=== PATIENT | female | born 1955 | race Caucasian/White ===

== ENCOUNTER 2016-08-11 08:59 | Day surgery (SDC) | payer OTHER ==
[~2016-08-11 08:59] MED LIST: Lactated Ringers 1,000 ML IV SCH; Sodium Chloride 0.9% 10 ML Syringe FLUSH PRN
[2016-08-11] MEDS ORDERED: Midazolam 1 MG/ML 2 ML SDV ONE ×2 (09:17→09:40)
[2016-08-11] MEDS ORDERED: fentaNYL 100 MCG/2 ML SDV ONE ×2 (09:17→09:40)
[2016-08-11] MEDS ORDERED: Propofol 200 MG/20 ML SDV ONE ×2 (09:18→09:40)
--- NOTE | 2016-08-11 09:37 | PCM.PN ---
- General Info Date of Service: 08/11/16 - Review of Systems Systems Review Comment:: 61-year-old female referred by Cielo Silva for colonoscopy. She had a recent episode of sigmoid diverticulitis which was successfully treated with antibiotics. The patient states that she has no pain at this time. The patient also states that she has a family history of colon cancer with her mother having from this. The patient is medically stable to proceed today there is been no significant change in her health status since her recent exam. I discussed the proposed colonoscopy with the patient. Risks discussed included but were not limited to bleeding as well as the risk of colon perforation which the patient understands me the fatal. She agrees to proceed. - Patient Data Vitals - most recent: Last Vital Signs Temp 98.7 F 08/11/16 09:24 Pulse 105 H 08/11/16 09:24 Resp 20 08/11/16 09:24 BP 160/101 H 08/11/16 09:24 Pulse Ox 98 08/11/16 09:24 Weight - most recent: 88.904 kg Med Orders - Current: Current Medications Lactated Ringer's (Ringers, Lactated) 1,000 mls @ 125 mls/hr IV ASDIRECTED SHO Last Admin: 08/11/16 09:26 Dose: 125 mls/hr Sodium Chloride (Saline Flush) 10 ml FLUSH ASDIRECTED PRN PRN Reason: Keep Vein Open Discontinued Medications Fentanyl (Sublimaze) Confirm Administered Dose 100 mcg .ROUTE .STK-MED ONE Stop: 08/11/16 09:18 Midazolam HCl (Versed 1 Mg/Ml) Confirm Administered Dose 2 mg .ROUTE .STK-MED ONE Stop: 08/11/16 09:18 Propofol (Diprivan 20 Ml) Confirm Administered Dose 200 mg .ROUTE .STK-MED ONE Stop: 08/11/16 09:19 - Problem List Review Problem List Initiated/Reviewed/Updated: Yes - Assessment Assessment:: Family history of colon cancer - Plan Plan:: Colonoscopy
--- NOTE | 2016-08-11 10:34 | PCM.OPNOTE ---
- General Post-Op/Procedure Note Date of Surgery/Procedure: 08/11/16 Operative Procedure(s): Colonoscopy Findings: Moderate Sigmoid Diverticulosis with mild residual inflammation Pre Op Diagnosis: History of Diverticulitis. Family History of Colon Cancer Post-Op Diagnosis: Same Anesthesia Technique: MAC Primary Surgeon: Georgi Richardson Pathology: none Output, Urine Amount: 0 EBL in mLs: 0 Complications: None Condition: Good Free Text/Narrative:: Intake & Output 08/10/16 08/11/16 08/11/16 22:59 06:59 14:59 Intake Total 500 Balance 500
[2016-08-11 11:19] VITALS: BP 132/89
--- NOTE | 2016-08-11 15:56 | OR ---
Date of Procedure: 08/11/2016 PREOPERATIVE DIAGNOSES: 1. Family history of colon carcinoma. 2. History of diverticulitis. POSTOPERATIVE DIAGNOSIS: Resolving diverticulitis. OPERATION PERFORMED: Colonoscopy. INDICATIONS FOR SURGERY: This 61-year-old female recently had an episode of diverticulitis. It has been five years since her last colon exam and she does have a family history of colon cancer in her mother. FINDINGS: No polyps were seen on today's exam. The patient does have a moderate degree of sigmoid diverticulosis. Few medium-sized pockets were noted and there was a mild degree of residual inflammation seen in the nearby mucosa. No other complications were identified. DESCRIPTION OF PROCEDURE: The patient was taken to the operating room. She was given intravenous sedation and with her in the left lateral decubitus position, digital rectal exam was performed showing no rectal masses. The Olympus colonoscope was inserted into the rectum, retroflexed, examination of the rectal canal was performed. The scope was then carefully advanced under direct visualization through the entire length of the colon until the cecum was reached. Cecal acquisition was confirmed by noting the normal internal cecal anatomy including the appendiceal orifice and ileocecal valve. The light was also noted to transilluminate the abdominal wall and the right lower quadrant. After examining the cecum, the scope was slowly withdrawn sequentially re- examining the colonic segments until the entire colon and rectum had been fully examined. The scope was then removed and the patient was taken from the operating room in satisfactory condition. ESTIMATED BLOOD LOSS: Zero. COMPLICATIONS: None. PROGNOSIS: Good. KELLE Richardson MD /[id number]
== END 2016-08-11 12:08 | disposition home or self-care (01) ==
LOC: LL.SDS 08:59
PROVIDERS: ATTEND Surgery
DX: Z12.11 Encounter for screening for malignant neoplasm of colon (principal); K57.30 Diverticulosis of large intestine without perforation or abscess without bleeding; F41.9 Anxiety disorder, unspecified; F32.9 Major depressive disorder, single episode, unspecified; Z91.040 Latex allergy status; Z79.899 Other long term (current) drug therapy; Z90.49 Acquired absence of other specified parts of digestive tract; Z88.8 Allergy status to other drugs, medicaments and biological substances; Z98.890 Other specified postprocedural states; Z98.51 Tubal ligation status
CPT/HCPCS: 45378; J7120; J2250; J2704; J3010

== ENCOUNTER 2021-10-07 08:36 | Day surgery (SDC) | payer MEDICARE, OTHER ==
[~2021-10-07 08:36] MED LIST changes: +Midazolam 1 MG/ML 2 ML SDV ONE; +Propofol 200 MG/20 ML SDV ONE
[2021-10-07 17:29] VITALS: BP 159/95; PULSE 82
== END 2021-10-07 11:25 | disposition home or self-care (01) ==
LOC: LL.SDS 08:36
PROVIDERS: ATTEND Surgery
DX: Z12.11 Encounter for screening for malignant neoplasm of colon (principal); K57.30 Diverticulosis of large intestine without perforation or abscess without bleeding; I10 Essential (primary) hypertension; E87.2 Acidosis; E11.9 Type 2 diabetes mellitus without complications; R56.9 Unspecified convulsions; E78.00 Pure hypercholesterolemia, unspecified; F41.9 Anxiety disorder, unspecified; F32.A Depression, unspecified; Z80.0 Family history of malignant neoplasm of digestive organs; Z79.899 Other long term (current) drug therapy; Z79.82 Long term (current) use of aspirin; Z90.49 Acquired absence of other specified parts of digestive tract; Z91.012 Allergy to eggs; Z91.011 Allergy to milk products; Z88.8 Allergy status to other drugs, medicaments and biological substances; Z91.040 Latex allergy status
CPT/HCPCS: 00812; J2250; J2704; J7120

== ENCOUNTER 2023-02-12 13:26 | Emergency (ER) | payer MEDICARE, OTHER ==
[2023-02-12 13:54] LABS: BASOPHILS ABSOLUTE AUTO 0.04 K/uL (0.00-0.20); BASOPHILS PERCENT AUTO 0.5 % (0.0-2.0); EOSINOPHILS ABSOLUTE AUTO 0.23 K/uL (0.00-0.50); EOSINOPHILS PERCENT AUTO 2.6 % (0.0-5.0); HEMATOCRIT 39.6 % (34.0-46.0); HEMOGLOBIN 13.2 g/dL (11.7-15.5); LYMPHOCYTES ABSOLUTE AUTO 1.62 K/uL (0.50-3.50); LYMPHOCYTES PERCENT AUTO 18.6 % (10.0-50.0); MEAN CORPUSCULAR HEMOGLOBIN 29.7 pg (28.2-33.3); MEAN CORPUSCULAR HGB CONC 33.3 g/dL (31.7-36.0); MONOCYTES ABSOLUTE AUTO 0.81 K/uL (0.00-1.00); MONOCYTES PERCENT AUTO 9.3 % (2.0-14.0); NEUTROPHILS ABSOLUTE AUTO 5.99 K/uL (1.40-7.00); PLATELET COUNT,PLT 286 K/uL (150-350); RED BLOOD CELL COUNT 4.45 M/uL (3.77-5.09); RED CELL DISTRIBUTION WIDTH 13.6 % (11.2-14.1); WHITE BLOOD CELL COUNT,WBC 8.7 K/uL (4.0-10.2)
[2023-02-12 14:02] LABS: APPEARANCE,URINE SLIGHTLY CLOUDY; BILIRUBIN,URINE NEGATIVE (NEGATIVE); COLOR,URINE YELLOW; GLUCOSE,URINE NEGATIVE (NEGATIVE); KETONES,URINE NEGATIVE (NEGATIVE); LEUKOCYTE ESTERASE,URINE MODERATE (NEGATIVE); NITRITE,URINE NEGATIVE (NEGATIVE); OCCULT BLOOD,URINE MODERATE (NEGATIVE); PROTEIN,URINE NEGATIVE (NEGATIVE); UROBILINOGEN,URINE 0.2 E.U./dL (0.2-1.0)
[2023-02-12 14:07] LABS: ANION GAP 9.4 meq/L (7-15); BLOOD UREA NITROGEN,BUN 9 mg/dL (7-18); CALCIUM 9.3 mg/dL (8.5-10.1); CARBON DIOXIDE,CO2 27.6 mmol/L (21.0-32.0); CHLORIDE,CL 103 mmol/L (98-107); CREATININE 0.84 mg/dL (0.51-1.17); GLUCOSE RANDOM 113 mg/dL (70-99); SODIUM,NA 140 mmol/L (136-145)
[2023-02-12 14:11] LABS: WBC,URINE 40-50 /HPF
[2023-02-12 14:12] LABS: BACTERIA,URINE MODERATE /HPF (NONE TO FEW); EPITHELIAL CELLS,URINE OCCASIONAL /LPF; ESTIMATED GFR 75 mL/min (>=60); MUCUS,URINE RARE /LPF (NEGATIVE)
[2023-02-12] MEDS ORDERED: cefTRIAXone 1 GM, Lidocaine 1% 2.1 ML IM ONE ×2 (14:21)
[2023-02-12] MEDS ORDERED: Take Home: Nitrofurantoin Monohydrate/Macrocrystalline 100 MG, 6 Cap Pack PO ONE (14:32)
[2023-02-12] MEDS ORDERED: Phenazopyridine 95 MG Tab PO ONE (14:35)
[2023-02-12] MEDS ORDERED: Take Home: Phenazopyridine 95 MG Tab, 4 Tab Pack PO ONE (14:38)
[2023-02-12 14:56] VITALS: BP 168/89; PULSE 96
[2023-02-12] MEDS ORDERED: Phenazopyridine 95 MG Tab PO SCH (18:30)
== END 2023-02-12 14:47 | disposition home or self-care (01) ==
LOC: LL.ED 13:26
DX: N39.0 Urinary tract infection, site not specified (principal); I10 Essential (primary) hypertension; E78.00 Pure hypercholesterolemia, unspecified; Z88.5 Allergy status to narcotic agent; Z91.011 Allergy to milk products; Z91.012 Allergy to eggs; Z91.040 Latex allergy status; Z91.048 Other nonmedicinal substance allergy status; Z79.899 Other long term (current) drug therapy
CPT/HCPCS: 36415; 80048; 81001; 85025; 87086; 87088; 87186; 96372; 99283; 99284; A9270-GY; J0696; J3490

== ENCOUNTER 2024-11-03 15:58 | Emergency (ER) | payer MEDICARE, OTHER ==
[2024-11-03 16:29] LABS: APPEARANCE,URINE CLOUDY; GLUCOSE,URINE NEGATIVE (NEGATIVE); OCCULT BLOOD,URINE MODERATE (NEGATIVE)
[2024-11-03 16:35] LABS: EPITHELIAL CELLS,URINE MODERATE /LPF; SQUAMOUS EPITHELIAL CELLS,UR FEW /HPF (NOT SEEN)
[2024-11-03] MEDS: Take Home: Nitrofurantoin Monohydrate/Macrocrystalline 100 MG, 6 Cap Pack PO ONE (17:08)
[2024-11-03 17:17] VITALS: BP 144/92; PULSE 82
== END 2024-11-03 17:15 | disposition home or self-care (01) ==
LOC: LL.ED 15:58
DX: N30.90 Cystitis, unspecified without hematuria (principal); E78.00 Pure hypercholesterolemia, unspecified; I10 Essential (primary) hypertension; Z88.5 Allergy status to narcotic agent; Z91.018 Allergy to other foods; Z91.012 Allergy to eggs; Z91.040 Latex allergy status; Z79.899 Other long term (current) drug therapy; Z79.82 Long term (current) use of aspirin; Z90.49 Acquired absence of other specified parts of digestive tract
CPT/HCPCS: 81001; 87086; 87088; 87186; 99283; A9270